=== PATIENT | male | born 1950 | race Hispanic/Latino ===

== ENCOUNTER 2018-12-14 11:17 | Inpatient (IN) | payer BC ==
[2018-12-14 12:12] LABS: Hemoglobin 6.3 g/dL (14.0-18.0); Mean Corpuscular HGB CONC 28.2 g/dL (32.0-36.0); Mean Corpuscular Hemoglobin 18.1 pg (27.0-31.0); Mean Corpuscular Volume 64.3 fL (78.0-98.0); Mean Platelet Volume 9.2 fL (7.4-10.4); Platelet Count 422 thou/uL (130-400); RBC Distribution Width 17.8 % (11.5-14.5); Red Blood Cell (RBC) Count 3.46 mill/uL (4.70-6.10)
[2018-12-14 12:27] LABS: ALT (SGPT) 13 U/L (8-55); AST (SGOT) 16 U/L (5-34); Albumin 4.1 g/dL (3.4-4.8); Alkaline Phosphatase 63 U/L (40-150); Anion Gap 14 mmol/L (10-20); BUN (Urea Nitrogen) 21 mg/dL (8.4-25.7); Bilirubin, Total 0.3 mg/dL (0.2-1.2); Calc. Creatinine Clearance 0 mL/min (70-130); Carbon Dioxide 24 mmol/L (23-31); Chloride 105 mmol/L (98-107); Estimated GFR-MDRD 44; Globulin 2.6 g/dL (2.4-3.5); Glucose 224 mg/dL (80-115); Potassium 3.9 mmol/L (3.5-5.1); Protein, Total 6.7 g/dL (5.8-8.1); Sodium 139 mmol/L (136-145)
[2018-12-14 12:44] LABS: PTT 28.3 SEC (22.9-36.1); Prothrombin Time 13.4 SEC (12.0-14.7)
[2018-12-14 12:53] LABS: #Eosinphils 0.2 thou/uL (0.0-0.7); #Lymphocytes 1.4 thou/uL (1.20-3.40); #Monocytes 0.5 thou/uL (0.11-0.59); #Neutrophils 4.8 thou/uL (1.40-6.50); %Basophils 0.2 % (0.0-1.0); %Eosinophils 3.1 % (0.0-10.0); %Lymphocytes 20.5 % (21.0-51.0); %Neutrophils 69.3 % (42.0-75.0); Acanthocytes SLIGHT = 1-5 cells (100X) (None Seen); Anisocytosis SLIGHT = 6-15 cells (100X) (0-5/hpf); Elliptocytes SLIGHT = 2-5 cells (100X) (0-1/hpf); Hypochromia SLIGHT = 6-15 cells (100X) (0-5/hpf); MDiff Complete? YES; Microcytosis MODERATE=15-30 cells (100X) (0-5/hpf); Platelet Morphology Comment Appears Increased; Poikilocytosis SLIGHT = 6-15 cells (100X) (0-5/hpf); Polychromasia SLIGHT = 2-3 cells (100X) (0-2/hpf)
[2018-12-14] MEDS ORDERED: Ondansetron PF 4 MG/2 ML Vial IVP PRN ×2 (14:00→16:19)
[2018-12-14] MEDS ORDERED: Ondansetron ODT 4 MG TAB SL PRN (14:00)
[2018-12-14 14:23] LABS: Reticulocyte Count 1.5 % (0.5-1.5)
--- NOTE | 2018-12-14 15:31 | HP ---
PRIMARY CARE PHYSICIAN: Dr. Kathrine Whitfield. REASON FOR ADMISSION: Severe symptomatic anemia. HISTORY OF PRESENT ILLNESS: A 68-year-old male, who has no significant medical history other than coronary artery disease, diabetes, hypertension, who presented to emergency room because he was referred by primary care physician. The patient is French-speaking only, so most of the history obtained with the help of family member who interpreted for me. The patient has long history of anemia. Back in August, the patient saw primary care physician. At that time, his hemoglobin was around 8. For last couple of months, the patient has increasing shortness of breath, dizziness, fatigue, tiredness, palpitation and that is why he made appointment with Dr. Whitfield today and routine blood test done which showed hemoglobin 6.3 and that is why the patient was directed to the emergency room for evaluation. This patient denies any NSAID abuse. He denies any epigastric abdominal pain. He does not have any classic melena or hematochezia, but the stool for guaiac was positive in the emergency room. He has good appetite. He denies any weight loss. He had never had any upper or lower endoscopy in the past. He does not have any family history of colon cancer. He denies any currently chest pain. He denies any urinary tract infection symptoms, flu-like illness. He denies any fever or chills or chronic illness. REVIEW OF SYSTEMS: CONSTITUTIONAL: Negative for weight loss or gain, ability to conduct usual activities. SKIN: Negative for rash, itching. EYES: Negative for double vision, pain. ENT/MOUTH: Negative for nose bleeding, neck stiffness, pain, tenderness. CARDIOVASCULAR: Negative for palpitations, dyspnea on exertion, orthopnea. RESPIRATORY: Negative for shortness of breath, wheezing, cough, hemoptysis, fever or night sweats. GASTROINTESTINAL: Negative for poor appetite, abdominal pain, heartburn, nausea, vomiting, constipation, or diarrhea. GENITOURINARY: Negative for urgency, frequency, dysuria, nocturia. MUSCULOSKELETAL: Negative for pain, swelling. NEUROLOGIC/PSYCHIATRIC: Negative for anxiety, depression. ALLERGY/IMMUNOLOGIC: Negative for skin rash, bleeding tendency. Please see my HPI for pertinent positive and negative. All other review of systems reviewed and negative except as mentioned in HPI. EMERGENCY ROOM COURSE: Currently in the emergency room, the patient is receiving blood transfusion. PAST MEDICAL HISTORY: Diabetes type 2, hypertension, dyslipidemia, coronary artery disease. PAST SURGICAL HISTORY: Per family member, the patient had a cholecystectomy. PAST PSYCHIATRIC HISTORY: Reviewed and negative. SOCIAL HISTORY: The patient lives at home with family. No history of tobacco, alcohol, or illicit drug abuse. FAMILY HISTORY: No family history of coronary artery disease or stroke, but the patient's father had prostate cancer. ALLERGIES: NO KNOWN DRUG ALLERGIES. CURRENT HOME MEDICATIONS: At this point, the patient's family member did not bring his home medication, so unable to review at this point, but we will review later when family member bring this patient's home medication. PHYSICAL EXAMINATION: VITAL SIGNS: Currently blood pressure 151/61, pulse 66, respiratory rate 18, temperature 98.1, saturation 99% on room air. Weight 102.5 kg. GENERAL: The patient is currently alert and awake, no obvious acute distress. HEENT: Head; normocephalic, atraumatic. Eyes, conjunctiva pale. No nystagmus. Pupils round and reactive to light. Extraocular muscle intact. ENT, oropharynx within normal limit. Pale mucous membranes. No pharyngeal erythema. No exudate. NECK: Supple. No JVD. No thyromegaly. No carotid bruit. LUNGS: Clear to auscultation without any rhonchi or rales. CARDIAC: S1 and S2 regular. Soft systolic grade 2/6 murmur noted at the parasternal and apex. ABDOMEN: Soft. Bowel sounds present. Nontender. Nondistended. No organomegaly. No mass. No suprapubic tenderness. BACK: Unremarkable. No CVA tenderness. EXTREMITIES: Upper extremities; passive movement of all joints are normal. Lower extremity, no edema. Good distal pulsation. No calf tenderness. SKIN: No skin rash. HEMATOLOGIC: No lymphadenopathy. PSYCHIATRIC: Normal affect. NEUROLOGIC: Nonfocal examination. SIGNIFICANT LABORATORY DATA: EKG showing LVH criteria. CBC; WBC 7.0, hemoglobin 6.3, MCV 64.3, platelet 422, reticulocyte count 1.5. INR 1.0. BMP; sodium 139, potassium 3.9, chloride 105, carbon dioxide 24, BUN 21, creatinine 1.57, glucose 224, calcium 9.0. LFT; AST 16, ALT 13, alkaline phosphatase 63, albumin 4.1, iron 15, ferritin 5.79, TIBC 355. Stool for guaiac positive. ASSESSMENT AND PLAN: Impression: 1. Severe symptomatic iron deficiency anemia, acute on chronic, likely due to chronic blood loss. The patient's anemia workup in the emergency room is consistent with iron deficiency anemia and his stool for guaiac is positive, suspecting GI related loss. The patient does not have any other risk factor, but the patient will need gastroenterology evaluation. He will need upper and lower endoscopy to identify the source of bleeding. If upper and lower endoscopy unable to find any etiology of anemia, then he will need imaging with CT abdomen and pelvis to rule out any occult bleeding. The patient will need iron supplementation along with iron infusion as well as the patient is getting blood transfusion and eventually if he has recurrent anemia, then he will benefit from capsule endoscopy. 2. Diabetes type 2. We will continue with insulin as per sliding scale protocol. Diabetic diet will be given. Today, we will keep him on clear liquid diet and then we will start colonoscopy preparation and then after procedure, we will resume diabetic diet. 3. Coronary artery disease without any angina at this point. We will check cardiac enzymes. 4. Hypertension. We will continue the patient's home medication. Monitor vitals while in hospital. 5. Dyslipidemia. We will resume the patient's home medication. 6. DVT prophylaxis, SCD boots. GI prophylaxis, Protonix 40 mg p.o. daily. 7. Code status, the patient is full code. The patient's is surrogate decision maker. DISPOSITION PLAN: Based on clinical course, plan of care discussed with the patient and the patient's family member at bedside in the emergency room extensively. Job ID: [id number]
[2018-12-14] MEDS ORDERED: Nitroglycerin 0.4 MG TAB (25 Tab Bottle) SL PRN (16:19)
[2018-12-14] MEDS ORDERED: Acetaminophen 325 MG TAB PO PRN (16:19)
[2018-12-14] MEDS ORDERED: HumaLOG 300 UNITS/3 ML VIAL SC PRN (16:19)
[2018-12-14] MEDS ORDERED: Artificial Tear Sol 15 ML BOT EA EYE PRN (16:19)
[2018-12-14] MEDS ORDERED: HYDROcodone/Acetaminophen 5/325 mg Tablet PO PRN (16:19)
[2018-12-14] MEDS ORDERED: Ondansetron ODT 4 MG TAB PO PRN (16:19)
[2018-12-14] MEDS ORDERED: Labetalol HCl 100 MG/20 ML VIAL SLOW IVP PRN (16:19)
[2018-12-14] MEDS ORDERED: hydrALAZINE 20 MG/ML VIAL SLOW IVP PRN (16:19)
[2018-12-14] MEDS ORDERED: Zolpidem Tartrate 5 MG TAB PO PRN (16:19)
[2018-12-14] MEDS ORDERED: Bisacodyl 10 MG SUPP PR PRN (16:19)
[2018-12-14] MEDS ORDERED: Calcium Carbonate 500 MG ChewTAB PO PRN (16:19)
[2018-12-14] MEDS ORDERED: Bisacodyl 5 MG TAB PO PRN (16:19)
[2018-12-14] MEDS ORDERED: Dextrose 5% in Water 1,000 ML IV PRN (16:19)
[2018-12-14] MEDS ORDERED: Dextrose 50% Abboject 50 ML SYRINGE SLOW IVP PRN (16:19)
[2018-12-14] MEDS ORDERED: Eucerin (Mineral Oil/Petrolatum,White) 30 gm Jar TOP PRN (16:19)
[2018-12-14] MEDS ORDERED: Loperamide HCl 2 MG CAP PO PRN (16:19)
[2018-12-14] MEDS ORDERED: Diabetic Tussin 200 MG/10 ML UDCUP PO PRN (16:19)
[2018-12-14] MEDS ORDERED: Sodium Chloride 0.65% Nasal 44 ML BOT EA NARE PRN (16:19)
[2018-12-14] MEDS ORDERED: Senokot S 8.6-50 MG TAB PO PRN (16:19)
[2018-12-14] MEDS ORDERED: Cepastat Lozenges 1 LOZ PO PRN (16:19)
[2018-12-14 16:20] VITALS: BMI 30.6
[2018-12-14] MEDS ORDERED: GoLYTELY 4,000 ml Bottle PO SCH (18:00)
[2018-12-14] MEDS: Sodium Chloride 0.9% 1,000 ML IV SCH (18:06)
[2018-12-14 18:19] LABS: Bilirubin Negative (Negative); Blood, Urine Negative (Negative); Clarity CLEAR (Clear); Glucose, Urine (Dipstick) Negative (Negative); Leukocyte Negative (Negative); Nitrite Negative (Negative); Protein, Urine (Dipstick) Negative (Neg-Trace); Specific Gravity, Urine 1.007 (1.002-1.036); Urobilinogen 0.2 mg/dL (0.2-1.0)
[2018-12-14 18:22] LABS: Bacteria/HPF None Seen HPF (None Seen); Hyaline Casts/LPF 0-3 HYALINE CAST LPF (0-3 Hyaline); Pathc Cast-AUWi Flag 0.43 (0-2.49); RBC/HPF 0-3 HPF (0-3); Squamous Epithelial None Seen HPF (0-3); WBC/HPF None Seen HPF (0-3)
--- NOTE | 2018-12-14 21:31 | CON ---
DATE OF CONSULTATION: 12/14/2018 REASON FOR CONSULTATION: Symptomatic anemia, anemia of unknown origin. CONSULTING PHYSICIAN: Dr. Fabrizio Mendoza. HISTORY OF PRESENT ILLNESS: The patient is a 68-year-old male with past medical history of coronary artery disease, diabetes, and hypertension, presenting with complaints of increased shortness of breath with exertion, fatigue, and mild dizziness. The patient states that in August of 2018, he was evaluated by his primary care physician and noted to have anemia. At that time, he was recommended to follow up with a GI physician for possible upper and lower endoscopy to determine the etiology of his anemia. However, he failed to follow up with both his primary care physician and the GI doctor. Over the last 2-3 months, he states that he has been having progressive worsening of fatigue/tiredness, mild dizziness, especially with positional change and shortness of breath primarily with exertion. Otherwise, he denies any nausea, vomiting, fevers, chills, chest pain, GI bleeding, dysphagia, odynophagia, diarrhea, or constipation. Of note, the patient does have a history of significant coronary artery disease and did have stent placement x2 in the beginning of 2017. He had been taking Brilinta and aspirin as dual therapy since that time. REVIEW OF SYSTEMS: A 10-category review of systems was performed with all responses negative except for the pertinent positives as listed in the HPI. PAST MEDICAL HISTORY: As per HPI. PAST SURGICAL HISTORY: Cholecystectomy. FAMILY HISTORY: Denies any GI malignancies. SOCIAL HISTORY: Denies any tobacco, alcohol, or illicit drug use. OUTPATIENT MEDICATIONS: Reviewed. ALLERGIES: NO KNOWN DRUG ALLERGIES. PHYSICAL EXAMINATION: VITAL SIGNS: Temperature 98.1, pulse 71, blood pressure 155/66, respiratory rate 18, saturating 99% on room air. GENERAL: The patient is lying in bed, in no acute distress. Alert and oriented x4. HEENT: Normocephalic, atraumatic. NECK: Supple. No JVD or scleral icterus noted. CARDIOVASCULAR: Regular rate and rhythm with no discernible murmurs, gallops, or rubs. RESPIRATORY: Clear to auscultation bilaterally with no discernible wheezes or rales. ABDOMINAL: Normoactive bowel sounds. Soft, nontender, nondistended. EXTREMITIES: No cyanosis, clubbing, or edema. LABORATORY DATA: CBC with a white blood cell count of 7, hemoglobin 6.3, hematocrit 22.3, platelets 422. INR 1.0. Chemistry with a sodium of 139, potassium 3.9, chloride 105, CO2 of 24, BUN 21, creatinine 1.57, glucose 224, iron 15, ferritin 5.79, TIBC 355 with a retic count of 0.46 (elevated). IMAGING DATA: No current GI imaging is available for review. ASSESSMENT AND PLAN: The patient is a 68-year-old male with past medical history of coronary artery disease, diabetes, and hypertension, presenting with symptomatic anemia/anemia of unknown etiology. Symptomatic anemia: The patient was initially diagnosed with anemia in August 2018 when he was noted on routine labs to have a hemoglobin of 8. He was subsequently referred to a GI physician for further workup, but no further workup was performed. Given the worsening of his symptoms, he was then prompted to seek healthcare assistance with the routine evaluation by his PCP earlier today. Routine blood testing showed a worsening of his anemia with a hemoglobin of now 6.3, and his PCP contacted him for more urgent evaluation of his anemia with trip to the [facility] ER. At the current time, he does endorse mild symptoms of fatigue, dizziness, and dyspnea on exertion consistent with his significant anemia. However, he denies any overt GI bleeding nor any discernible cause of his anemia. He is concurrently taking Brilinta which could further exacerbate any sort of bleeding and could be contributing to his current clinical situation. He did have a positive FOBT in the ER, which is indicative of a positive screening test for colonic malignancy. RECOMMENDATIONS: 1. We would continue to trend H and H and transfuse as necessary to maintain an H and H of 7/21. 2. Continue to monitor clinically for signs of active GI bleeding. 3. We would place the patient on a clear liquid diet today with plans to make the patient n.p.o. at midnight in anticipation for both an EGD and colonoscopy tomorrow morning. 4. We would avoid any anticoagulation for the time being given his symptomatic anemia. We will continue to follow. Please call with any questions. Job ID: [id number]
[2018-12-15] MEDS: Sodium Chloride 0.9% 1,000 ML IV SCH (02:02)
[2018-12-15 06:51] LABS: #Eosinphils 0.3 thou/uL (0.0-0.7); #Lymphocytes 1.2 thou/uL (1.20-3.40); #Monocytes 0.5 thou/uL (0.11-0.59); %Basophils 0.7 % (0.0-1.0); %Eosinophils 4.5 % (0.0-10.0); %Lymphocytes 19.5 % (21.0-51.0); %Monocytes 7.6 % (0.0-10.0); %Neutrophils 67.6 % (42.0-75.0); Hemoglobin 8.4 g/dL (14.0-18.0); Mean Corpuscular Hemoglobin 20.7 pg (27.0-31.0); Mean Corpuscular Volume 69.1 fL (78.0-98.0); Mean Platelet Volume 9.9 fL (7.4-10.4); Platelet Count 416 thou/uL (130-400); RBC Distribution Width 20.7 % (11.5-14.5); Red Blood Cell (RBC) Count 4.04 mill/uL (4.70-6.10); White Blood Cell (WBC) Count 5.9 thou/uL (4.8-10.8)
[2018-12-15 07:00] LABS: ALT (SGPT) 14 U/L (8-55); AST (SGOT) 16 U/L (5-34); Albumin 4.2 g/dL (3.4-4.8); Alkaline Phosphatase 58 U/L (40-150); Anion Gap 13 mmol/L (10-20); BUN (Urea Nitrogen) 12 mg/dL (8.4-25.7); Bilirubin, Total 0.5 mg/dL (0.2-1.2); Calc. Creatinine Clearance 107 mL/min (70-130); Calcium 9.3 mg/dL (7.8-10.44); Carbon Dioxide 24 mmol/L (23-31); Chloride 108 mmol/L (98-107); Estimated GFR-MDRD 77; Glucose 107 mg/dL (80-115); Potassium 3.7 mmol/L (3.5-5.1); Protein, Total 7.2 g/dL (5.8-8.1); Sodium 141 mmol/L (136-145)
[2018-12-15] MEDS ORDERED: KETAMINE 100 MG/ML (5ML VIAL) ONE (09:44)
--- NOTE | 2018-12-15 09:56 | PDOC.PN ---
- Subjective Encounter Start Date: 12/15/18 Encounter Start Time: 09:00 -: old records requested/rev Patient seen and examined. No new complaints. No overnight events - Objective Resuscitation Status - Order Detail: 12/14/18 14:51 Resuscitation Status Routine Resuscitation Status: FULL: Full Resuscitation MAR Reviewed: Yes Vital Signs & Weight: Vital Signs (12 hours) Temp Pulse Resp BP Pulse Ox 12/15/18 08:00 99 12/15/18 07:38 97.9 F 65 18 164/72 H 99 12/15/18 04:46 98 F 71 16 173/70 H 98 12/14/18 23:36 98.2 F 67 16 157/64 H 98 Weight Weight 226 lb Result Diagrams: 12/15/18 06:08 12/15/18 06:08 Additional Labs: Accuchecks 12/15/18 12/14/18 04:50 19:50 POC Glucose 107 88 Phys Exam - Physical Examination Constitutional: NAD HEENT: PERRLA, moist MMs, sclera anicteric Neck: no JVD, supple Respiratory: no wheezing, no rales, no rhonchi Cardiovascular: RRR, no significant murmur, no rub Gastrointestinal: soft, non-tender, no distention, positive bowel sounds Musculoskeletal: no edema, pulses present Neurological: non-focal, normal sensation, moves all 4 limbs Lymphatic: no nodes Psychiatric: normal affect, A&O x 3 Skin: no rash, normal turgor Dx/Plan (1) Acute kidney injury Code(s): N17.9 - ACUTE KIDNEY FAILURE, UNSPECIFIED Status: Resolved (2) Iron deficiency anemia due to chronic blood loss Code(s): D50.0 - IRON DEFICIENCY ANEMIA SECONDARY TO BLOOD LOSS (CHRONIC) Status: Acute (3) Symptomatic anemia Code(s): D64.9 - ANEMIA, UNSPECIFIED Status: Acute (4) Diabetes type 2, controlled Code(s): E11.9 - TYPE 2 DIABETES MELLITUS WITHOUT COMPLICATIONS Status: Chronic (5) Dyslipidemia Code(s): E78.5 - HYPERLIPIDEMIA, UNSPECIFIED Status: Chronic (6) GERD (gastroesophageal reflux disease) Code(s): K21.9 - GASTRO-ESOPHAGEAL REFLUX DISEASE WITHOUT ESOPHAGITIS Status: Chronic (7) Hypertension Code(s): I10 - ESSENTIAL (PRIMARY) HYPERTENSION Status: Chronic (8) Obesity (BMI 30.0-34.9) Code(s): E66.9 - OBESITY, UNSPECIFIED Status: Chronic - Plan cont current plan of care, plan discussed w/ family * today EGD, colonoscopy * will give parenteral iron * medication reviewed as below * symptomatic treatment * discussed with family. Review of Systems - Review of Systems ENT: negative: Ear Pain, Ear Discharge, Nose Pain, Nose Discharge, Nose Congestion, Mouth Pain, Mouth Swelling, Throat Pain, Throat Swelling, Other Respiratory: negative: Cough, Dry, Shortness of Breath, Hemoptysis, SOB with Excertion, Pleuritic Pain, Sputum, Wheezing Cardiovascular: negative: chest pain, palpitations, orthopnea, paroxysmal nocturnal dyspnea, edema, light headedness, other Gastrointestinal: negative: Nausea, Vomiting, Abdominal Pain, Diarrhea, Constipation, Melena, Hematochezia, Other Genitourinary: negative: Dysuria, Frequency, Incontinence, Hematuria, Retention , Other Musculoskeletal: negative: Neck Pain, Shoulder Pain, Arm Pain, Back Pain, Hand Pain, Leg Pain, Foot Pain, Other - Medications/Allergies Allergies/Adverse Reactions: Allergies Allergy/AdvReac Type Severity Reaction Status Date / Time No Known Allergies Allergy Verified 12/14/18 16:19 Medications: Current Medications Acetaminophen (Tylenol) 650 mg PO Q4H PRN PRN Reason: Headache/Fever/Mild Pain (1-3) Hydrocodone Bitart/Acetaminophen (Kent 5/325) 1 tab PO Q4H PRN PRN Reason: Moderate Pain (4-6) Artificial Tears (Tears Renewed 15ml Bottle) 2 drop EA EYE PRN PRN PRN Reason: Dry Eyes Bisacodyl (Dulcolax) 10 mg PO DAILYPRN PRN PRN Reason: Constipation Bisacodyl (Dulcolax) 10 mg MO DAILYPRN PRN PRN Reason: Constipation Calcium Carbonate (Tums) 1,000 mg PO Q4H PRN PRN Reason: Heartburn or Indigestion Dextrose/Water (Dextrose 50%) 25 gm SLOW IVP PRN PRN PRN Reason: Hypoglycemia Glucagon (Glucagon) 1 mg IM PRN PRN PRN Reason: Hypoglycemia Guaifenesin (Robitussin Sf) 200 mg PO Q4H PRN PRN Reason: Cough Hydralazine HCl (Apresoline) 10 mg SLOW IVP Q4H PRN PRN Reason: SBP > 180 and HR < 70 Dextrose/Water (D5w) 1,000 mls @ 0 mls/hr IV .Q0M PRN PRN Reason: Hypoglycemia Insulin Human Lispro (Humalog) 0 units SC .MODERATE SLIDING SC PRN PRN Reason: Moderate Correctional Scale Insulin Human Lispro (Humalog) 0 units SC .BEDTIME SLIDING SC PRN PRN Reason: Bedtime Correctional Scale Labetalol HCl (Normodyne) 20 mg SLOW IVP Q4H PRN PRN Reason: SBP > 180 and HR >/= 70 Loperamide HCl (Imodium) 2 mg PO PRN PRN PRN Reason: Diarrhea/Loose Stools Metoprolol Succinate (Toprol Xl) 25 mg PO BID RUBEN Last Admin: 12/15/18 05:10 Dose: 25 mg Mineral Oil/White Petrolatum (Eucerin Cream) 0 gm TOP BIDPRN PRN PRN Reason: Dry Skin Nitroglycerin (Nitrostat) 0.4 mg SL Q5MIN PRN PRN Reason: Chest Pain Ondansetron HCl (Zofran Odt) 4 mg PO Q6H PRN PRN Reason: Nausea/Vomiting Ondansetron HCl (Zofran) 4 mg IVP Q6H PRN PRN Reason: Nausea/Vomiting Senna/Docusate Sodium (Senokot S) 2 tab PO BID PRN PRN Reason: Constipation Sodium Chloride ([place] Nasal [place] 0.65%) 0 ml EA NARE QIDPRN PRN PRN Reason: Nasal Congestion Throat Lozenges (Cepastat Lozenges) 1 christina PO Q2H PRN PRN Reason: Sore Throat Zolpidem Tartrate (Ambien) 5 mg PO HSPRN PRN PRN Reason: Insomnia
[2018-12-15] MEDS ORDERED: Iron, Sodium Ferric Gluconate 250 MG in Sodium Chloride 0.9% 250 ML 250 ML IVPB SCH (10:00)
[2018-12-15] MEDS ORDERED: Promethazine HCl 25 MG/ML VIAL IM PRN (10:31)
[2018-12-15] MEDS ORDERED: Ondansetron HCl/PF 4 MG/2 ML Vial IVP PRN (10:31)
[2018-12-15] MEDS ORDERED: Promethazine HCl 25 MG/ML VIAL SLOW IVP PRN (10:31)
--- NOTE | 2018-12-15 11:06 | OP ---
DATE OF PROCEDURE: 12/15/2018 INDICATION FOR PROCEDURE: Iron-deficiency anemia. PROCEDURES: 1. Esophagogastroduodenoscopy with biopsy. 2. Colonoscopy (diagnostic). DESCRIPTION OF PROCEDURE: After the risks and benefits of the procedure were explained to the patient including risks of bleeding, infection, perforation, reactions to anesthesia, aspiration, and/or pain, informed consent was obtained. The patient was then taken to the endoscopy suite, where deep sedation was administered via propofol and anesthesia support. Once adequate sedation was achieved, a digital rectal examination was performed followed by introduction of the standard colonoscope into the rectum and advanced to the terminal ileum without difficulty. The quality of the prep was good to excellent with good visualization of the colonic mucosa. The patient tolerated the procedure well with no immediate perioperative complications. Upon conclusion of the procedure, all equipment was removed from the patient and the patient was taken to PACU in satisfactory condition. COLONOSCOPY FINDINGS: Digital rectal exam normal. Colon findings: Throughout the entire colon, mild discoloration was seen of the colonic mucosa in a Leopard skin type appearance consistent with melanosis coli. However, normal-appearing mucosa was seen within the terminal ileum as well as at the appendiceal orifice and the ileocecal valve normal. Otherwise, normal-appearing mucosa was also seen within the cecum, ascending, transverse, descending, sigmoid colons, and rectum. On rectal retroflexion, small internal hemorrhoids were seen as well as hypertrophied anal papillae. IMPRESSION: 1. [id number] melanosis coli. 2. Otherwise, normal colonoscopy. 3. No etiology for the patient's iron deficiency anemia was seen during this examination. EGD FINDINGS: Esophagus: Normal-appearing mucosa was seen in the proximal, mid, and distal esophagus. Both the diaphragmatic pinch and GE junction were well seen at approximately 45 cm past the incisors. There was no evidence of erosions, ulcerations, mass, lesions, or active/recent bleeding. Stomach: Normal-appearing mucosa was seen in the gastric cardia, fundus, body, greater curvature, antrum, and incisura. There was no evidence of erosions, ulcerations, mass, lesions, or active/recent bleeding. Duodenum: Normal-appearing mucosa was seen in both the duodenal bulb and second portion of the duodenum. There was no evidence of erosions, ulcerations, mass, lesions, or active/recent bleeding. Random duodenal biopsies were taken from both the duodenal bulb and second portion of the duodenum for evaluation of possible celiac disease. IMPRESSION: 1. Normal upper endoscopy. 2. No etiology for the patient's iron deficiency anemia was seen during this examination. RECOMMENDATIONS: 1. We will continue to trend H and H and transfuse as necessary to maintain an H and H of 7/21. 2. Continue to monitor clinically for signs of active GI bleeding. 3. Given his history of iron deficiency anemia and negative upper and lower endoscopy today, I would have the patient follow up in the clinic as an outpatient for capsule endoscopy and completion of evaluation of the GI tract. 4. We would consider non-GI etiologies for his anemia at this time. We will sign off at this time. Please have the patient follow up in the GI Clinic as an outpatient within the next 2 to 3 weeks for evaluation and scheduling of the capsule endoscopy. Job ID: [id number]
[2018-12-15] MEDS ORDERED: PROPOFOL 200 MG/20 ML VIAL ONE (15:34)
[2018-12-15] MEDS: HumaLOG 300 UNITS/3 ML VIAL SC PRN (15:51)
[2018-12-16] MEDS: HumaLOG 300 UNITS/3 ML VIAL SC PRN (05:25)
[2018-12-16] MEDS ORDERED: Iron, Sodium Ferric Gluconate 250 MG, Admixture Fee 1 EACH in Sodium Chloride 0.9% 250 ... IVPB SCH (07:45)
--- NOTE | 2018-12-16 10:01 | PDOC.PN ---
- Subjective Encounter Start Date: 12/16/18 Encounter Start Time: 07:20 Patient seen and examined. No new complaints. No overnight events - Objective Resuscitation Status - Order Detail: 12/14/18 14:51 Resuscitation Status Routine Resuscitation Status: FULL: Full Resuscitation MAR Reviewed: Yes Vital Signs & Weight: Vital Signs (12 hours) Temp Pulse Resp BP BP Pulse Ox 12/16/18 08:00 98 12/16/18 07:32 98.4 F 66 18 166/70 H 98 12/16/18 05:00 98 F 62 17 167/72 H 97 12/16/18 00:00 98.5 F 62 17 160/71 H 96 Weight Weight 226 lb I&O: 12/15/18 12/16/18 12/17/18 06:59 06:59 06:59 Intake Total 2170 Balance 2170 Result Diagrams: 12/15/18 06:08 12/15/18 06:08 Additional Labs: Accuchecks 12/16/18 12/15/18 12/15/18 05:19 19:56 15:38 POC Glucose 201 H 199 H 254 H 12/15/18 11:22 POC Glucose 99 Phys Exam - Physical Examination Constitutional: NAD HEENT: PERRLA, moist MMs, sclera anicteric Neck: no JVD, supple Respiratory: no wheezing, no rales, no rhonchi Cardiovascular: RRR, no significant murmur, no rub Gastrointestinal: soft, non-tender, no distention, positive bowel sounds Musculoskeletal: no edema, pulses present Neurological: non-focal, normal sensation, moves all 4 limbs Lymphatic: no nodes Psychiatric: normal affect, A&O x 3 Skin: no rash, normal turgor Dx/Plan (1) Acute kidney injury Code(s): N17.9 - ACUTE KIDNEY FAILURE, UNSPECIFIED Status: Resolved (2) Iron deficiency anemia due to chronic blood loss Code(s): D50.0 - IRON DEFICIENCY ANEMIA SECONDARY TO BLOOD LOSS (CHRONIC) Status: Acute (3) Symptomatic anemia Code(s): D64.9 - ANEMIA, UNSPECIFIED Status: Acute (4) Diabetes type 2, controlled Code(s): E11.9 - TYPE 2 DIABETES MELLITUS WITHOUT COMPLICATIONS Status: Chronic (5) Dyslipidemia Code(s): E78.5 - HYPERLIPIDEMIA, UNSPECIFIED Status: Chronic (6) GERD (gastroesophageal reflux disease) Code(s): K21.9 - GASTRO-ESOPHAGEAL REFLUX DISEASE WITHOUT ESOPHAGITIS Status: Chronic (7) Hypertension Code(s): I10 - ESSENTIAL (PRIMARY) HYPERTENSION Status: Chronic (8) Obesity (BMI 30.0-34.9) Code(s): E66.9 - OBESITY, UNSPECIFIED Status: Chronic - Plan cont current plan of care, plan discussed w/ family * medication reviewed as below * symptomatic treatment * CT abdomen * give one more iron dose IV * discharge later today. Review of Systems - Review of Systems ENT: negative: Ear Pain, Ear Discharge, Nose Pain, Nose Discharge, Nose Congestion, Mouth Pain, Mouth Swelling, Throat Pain, Throat Swelling, Other Respiratory: negative: Cough, Dry, Shortness of Breath, Hemoptysis, SOB with Excertion, Pleuritic Pain, Sputum, Wheezing Cardiovascular: negative: chest pain, palpitations, orthopnea, paroxysmal nocturnal dyspnea, edema, light headedness, other Gastrointestinal: negative: Nausea, Vomiting, Abdominal Pain, Diarrhea, Constipation, Melena, Hematochezia, Other Genitourinary: negative: Dysuria, Frequency, Incontinence, Hematuria, Retention , Other Musculoskeletal: negative: Neck Pain, Shoulder Pain, Arm Pain, Back Pain, Hand Pain, Leg Pain, Foot Pain, Other - Medications/Allergies Allergies/Adverse Reactions: Allergies Allergy/AdvReac Type Severity Reaction Status Date / Time No Known Allergies Allergy Verified 12/14/18 16:19 Medications: Current Medications Acetaminophen (Tylenol) 650 mg PO Q4H PRN PRN Reason: Headache/Fever/Mild Pain (1-3) Hydrocodone Bitart/Acetaminophen ([place] 5/325) 1 tab PO Q4H PRN PRN Reason: Moderate Pain (4-6) Artificial Tears (Tears Renewed 15ml Bottle) 2 drop EA EYE PRN PRN PRN Reason: Dry Eyes Bisacodyl (Dulcolax) 10 mg PO DAILYPRN PRN PRN Reason: Constipation Bisacodyl (Dulcolax) 10 mg [place] DAILYPRN PRN PRN Reason: Constipation Calcium Carbonate (Tums) 1,000 mg PO Q4H PRN PRN Reason: Heartburn or Indigestion Dextrose/Water (Dextrose 50%) 25 gm SLOW IVP PRN PRN PRN Reason: Hypoglycemia Glucagon (Glucagon) 1 mg IM PRN PRN PRN Reason: Hypoglycemia Guaifenesin (Robitussin Sf) 200 mg PO Q4H PRN PRN Reason: Cough Hydralazine HCl (Apresoline) 10 mg SLOW IVP Q4H PRN PRN Reason: SBP > 180 and HR < 70 Last Admin: 12/15/18 15:55 Dose: 10 mg Dextrose/Water (D5w) 1,000 mls @ 0 mls/hr IV .Q0M PRN PRN Reason: Hypoglycemia Ferric Sodium Gluconate Complex 250 mg/ Miscellaneous Medication 1 each/ Sodium Chloride 270 mls @ 129.808 mls/hr IVPB ONE [facility] Stop: 12/16/18 12:00 Insulin Human Lispro (Humalog) 0 units SC .MODERATE SLIDING SC PRN PRN Reason: Moderate Correctional Scale Last Admin: 12/16/18 05:25 Dose: 4 unit Insulin Human Lispro (Humalog) 0 units SC .BEDTIME SLIDING SC PRN PRN Reason: Bedtime Correctional Scale Labetalol HCl (Normodyne) 20 mg SLOW IVP Q4H PRN PRN Reason: SBP > 180 and HR >/= 70 Loperamide HCl (Imodium) 2 mg PO PRN PRN PRN Reason: Diarrhea/Loose Stools Metoprolol Succinate (Toprol Xl) 25 mg PO BID [facility] Last Admin: 12/16/18 08:23 Dose: 25 mg Mineral Oil/White Petrolatum (Eucerin Cream) 0 gm TOP BIDPRN PRN PRN Reason: Dry Skin Nitroglycerin (Nitrostat) 0.4 mg SL Q5MIN PRN PRN Reason: Chest Pain Ondansetron HCl (Zofran Odt) 4 mg PO Q6H PRN PRN Reason: Nausea/Vomiting Ondansetron HCl (Zofran) 4 mg IVP Q6H PRN PRN Reason: Nausea/Vomiting Senna/Docusate Sodium (Senokot S) 2 tab PO BID PRN PRN Reason: Constipation Sodium Chloride ([place] 0.65%) 0 ml EA NARE QIDPRN PRN PRN Reason: Nasal Congestion Sodium Chloride (Flush - Normal Saline) 10 ml IVF Q12HR [facility] Last Admin: 12/16/18 08:23 Dose: 10 ml Sodium Chloride (Flush - Normal Saline) 10 ml IVF PRN PRN PRN Reason: Saline Flush Throat Lozenges (Cepastat Lozenges) 1 christina PO Q2H PRN PRN Reason: Sore Throat Zolpidem Tartrate (Ambien) 5 mg PO HSPRN PRN PRN Reason: Insomnia
[2018-12-16] MEDS ORDERED: ISOVUE-370 76%-LOCM 1 ML ONE (10:16)
--- NOTE | 2018-12-16 10:40 | CT ---
CT OF ABDOMEN AND PELVIS PERFORMED WITH INTRAVENOUS CONTRAST ENHANCEMENT: Date: 12/16/18 HISTORY: Abdominal pain. Constipation. History of hernia repair. COMPARISON: None. FINDINGS: The lung bases are clear. The liver, spleen, and pancreas appear unremarkable. The gallbladder has been removed. Right and left adrenal glands, and right and left kidneys are normal in size. There is minimal perine phric fat stranding which is nonspecific. There is no significant periaortic or mesenteric lymphadeno ronald. The appendix is retrocecal in location and normal in size. CT of pelvis performed with contrast enhancement. No evidence of adenopathy, mass, or free fluid. The prostate is mildly prominent. IMPRESSION: 1. Postop cholecystectomy change. 2. No acute findings of the abdomen or pelvis. POS: [facility]
[2018-12-16 14:40] VITALS: BP 179/69; TEMP 98.2
--- NOTE | 2018-12-18 14:12 | DIS ---
DATE OF ADMISSION: 12/14/2018 DATE OF DISCHARGE: 12/16/2018 PRIMARY CARE PHYSICIAN: Kathrine Whitfield MD. DISCHARGE DISPOSITION: Home. PRIMARY DISCHARGE DIAGNOSIS: Symptomatic iron deficiency anemia status post two units of transfusion. SECONDARY DISCHARGE DIAGNOSES: Hypertension, dyslipidemia, diabetes type 2, coronary artery disease, and gastroesophageal reflux disease. PRIMARY PROCEDURE/OPERATION: EGD and colonoscopy were performed by Dr. 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 RADIOLOGICAL INVESTIGATION: Abdomen and pelvis CT scan was unremarkable. SIGNIFICANT LABORATORY DATA: WBC 5.9, hemoglobin 8.4, platelet 416. INR 1.0. Sodium 141, potassium 3.7, BUN 12, creatinine 0.97. LFT normal. Urinalysis normal. Stool for guaiac positive. DISCHARGE MEDICATIONS: 1. Amlodipine 10 mg daily. 2. Aspirin 81 mg daily. 3. Glipizide 10 mg b.i.d. 4. Imdur 60 mg daily. 5. Losartan with hydrochlorothiazide one tablet daily. 6. Lovastatin 10 mg at bedtime. 7. Metformin 1000 mg p.o. b.i.d. 8. Toprol-XL 25 mg b.i.d. 9. Protonix 40 mg daily. 10. Januvia 25 mg daily. 11. Tramadol 50 mg b.i.d. 12. Ferrous sulfate 325 mg p.o. b.i.d. CONTRAINDICATION: None. CODE STATUS: Full code. INPATIENT ACTIMIZE ARCHITECT: Dr. Errol Holguin was consulted while in hospital. TEST RESULT PENDING ON DISCHARGE: None. ALLERGIES: NO KNOWN DRUG ALLERGIES. DISCHARGE PLAN: Posthospital, the patient will follow up with primary care physician. The patient is instructed to make appointment with Dr. Errol Holguin in 1 or 2 weeks for outpatient capsule endoscopy. HOSPITAL COURSE: A 68-year-old male, who has iron deficiency anemia and it was keep getting worse to the point he started getting symptoms associated with anemia. He saw his primary care physician, who sent him to emergency room for evaluation. On admission, his hemoglobin was 6.3. He was given 2 units of blood transfusion. His presentation was consistent with iron deficiency anemia secondary to chronic blood loss. We consulted engineering mathematician and they did EGD and colonoscopy without any significant findings. The patient will need outpatient capsule endoscopy. We also did CT abdomen and pelvis and ruled out any abdominal pathology to explain his anemia. While in the hospital, we gave him two dose of Venofer IV as well as two units of blood transfusion was also given. His home medication was continued while in the hospital as well as upon discharge. The patient will follow up with engineering mathematician. The patient seen and examined on the day of discharge. Please see my progress note from that day. Overall, the patient is medically stable. Job ID: [id number]
== END 2018-12-16 15:58 | disposition home or self-care (01) | DRG 812 ==
LOC: ERS 11:17 → T4-B 16:12
PROVIDERS: ADMIT Internal Medicine; ATTEND Internal Medicine
PROC: 30233N1 Transfusion of Nonautologous Red Blood Cells into Peripheral Vein, Percutaneous Approach (ICD-10-PCS; principal; 2018-12-14)
DX: D50.0 Iron deficiency anemia secondary to blood loss (chronic) (principal); N17.9 Acute kidney failure, unspecified; I25.10 Atherosclerotic heart disease of native coronary artery without angina pectoris; E11.9 Type 2 diabetes mellitus without complications; I10 Essential (primary) hypertension; E66.9 Obesity, unspecified; K21.9 Gastro-esophageal reflux disease without esophagitis; E78.5 Hyperlipidemia, unspecified; K63.89 Other specified diseases of intestine; Z90.49 Acquired absence of other specified parts of digestive tract; Z98.61 Coronary angioplasty status; Z68.30 Body mass index [BMI] 30.0-30.9, adult
CPT/HCPCS: 36415; 36416; 36430; 74177; 80053; 81001; 82274; 82728; 83540; 83550; 84484; 85025; 85046; 85060; 85610; 85730; 86850; 86900; 86901; 88305; 93005; J0360; J2704; J2916; J7050; P9016